=== PATIENT | male | born 1960 | race Caucasian/White ===

== ENCOUNTER 2018-03-12 05:46 | Day surgery (SDC) | payer OTHER ==
--- NOTE | 2018-03-12 06:09 | ED PDOC ---
Arrival/HPI - General Chief Complaint: Chest Pain Time Seen by Provider: 03/12/18 05:56 Historian: Patient - History of Present Illness Narrative History of Present Illness (Text): 03/12/18 06:09 Mango Linton is a 57 year old male, whose past medical history includes hypertension and diabetes, who presents to the Emergency department complaining of history of chest pain. Patient states he has been experiencing mid-sternal c hest pain, intermittently since yesterday, with associated dizziness. Patient denies any fever, chills, nausea, vomiting, diarrhea, urinary symptoms, back pain, neck pain, headache, focal neurological deficits, or any other complaints.Patient currently without any chest pain. Symptom Onset: Gradual Symptom Course: Unchanged Activities at Onset: Light Context: Home Past Medical History - Provider Review Nursing Documentation Reviewed: Yes - Cardiac Hx Hypertension: Yes - Endocrine/Metabolic Hx Diabetes Mellitus Type 2: Yes - Psychiatric Hx Substance Use: No - Surgical History Other/Comment: R foot, 2nd toe amputation - Anesthesia Hx Anesthesia: Yes Hx Anesthesia Reactions: No Hx Malignant Hyperthermia: No Family/Social History - Physician Review Nursing Documentation Reviewed: Yes Family/Social History: Unknown Family HX Smoking Status: Never Smoked Hx Alcohol Use: No Hx Substance Use: No Allergies/Home Meds Allergies/Adverse Reactions: Allergies No Known Allergies Allergy (Verified 03/12/18 05:55) Review of Systems - Physician Review All systems were reviewed & negative as marked: Yes - Review of Systems Constitutional: Normal. absent: Fevers Eyes: Normal ENT: Normal Respiratory: Normal. absent: SOB, Cough Cardiovascular: Chest Pain Gastrointestinal: Normal. absent: Abdominal Pain, Diarrhea, Nausea, Vomiting Genitourinary Male: Normal. absent: Dysuria, Frequency, Hematuria, Urinary Output Changes Musculoskeletal: Normal. absent: Back Pain, Neck Pain Skin: Normal. absent: Rash Neurological: Dizziness Endocrine: Normal Hemo/Lymphatic: Normal Psychiatric: Normal Physical Exam Vital Signs Reviewed: Yes Vital Signs Pulse Resp BP Pulse Ox 03/12/18 06:05 63 18 163/76 H 98 Temperature: Afebrile Blood Pressure: Hypertensive Pulse: Regular Respiratory Rate: Normal Appearance: Positive for: Well-Appearing, Non-Toxic, Comfortable Pain Distress: None Mental Status: Positive for: Alert and Oriented X 3 - Systems Exam Head: Present: Atraumatic, Normocephalic Pupils: Present: PERRL Extroacular Muscles: Present: EOMI Conjunctiva: Present: Normal Mouth: Present: Moist Mucous Membranes Neck: Present: Normal Range of Motion Respiratory/Chest: Present: Clear to Auscultation, Good Air Exchange. No: Respiratory Distress, Accessory Muscle Use Cardiovascular: Present: Regular Rate and Rhythm, Normal S1, S2. No: Murmurs Abdomen: No: Tenderness, Distention, Peritoneal Signs Back: Present: Normal Inspection Upper Extremity: Present: Normal Inspection. No: Cyanosis, Edema Lower Extremity: Present: Normal Inspection. No: Edema Neurological: Present: GCS=15, CN II-XII Intact, Speech Normal Skin: Present: Warm, Dry, Normal Color. No: Rashes Psychiatric: Present: Alert, Oriented x 3, Normal Insight, Normal Concentration Medical Decision Making ED Course and Treatment: 03/12/18 06:09 Impression: 57 year old male complaining of chest pain and dizziness since yesterday. Plan: -- EKG -- Chest X-ray -- Labs, cardiac enzymes -- Reassess and disposition Prior Visits: Notes and results from previous visits were reviewed. Progress Notes: Reviewed EKG, NSR at [address] LAHB. Non-specific ST/T wave changes. 03/12/18 07:00 Informed that patient is scheduled to go to the cardiac animal laboratory technician. and that his presence requested 0 - EKG Interpretation Interpreted by ED Physician: Yes Type: 12 lead EKG - Scribe Statement The provider has reviewed the documentation as recorded by the Harrison Esqueda Provider Scribe Attestation: All medical record entries made by the Scribe were at my direction and personally dictated by me. I have reviewed the chart and agree that the record accurately reflects my personal performance of the history, physical exam, medical decision making, and the department course for this patient. I have also personally directed, reviewed, and agree with the discharge instructions and disposition. Disposition/Present on Arrival - Present on Arrival Any Indicators Present on Arrival: No History of DVT/PE: No History of Uncontrolled Diabetes: No Urinary Catheter: No History of Decub. Ulcer: No History Surgical Site Infection Following: None - Disposition Have Diagnosis and Disposition been Completed?: Yes Diagnosis: Chest pain Disposition: HOSPITALIZED Disposition Time: 06:56 Condition: STABLE Discharge Instructions (ExitCare): Chest Pain (ED) Forms: How do you roll? (Azeri)
[2018-03-12 06:50] LABS: HEMOGLOBIN 11.1 g/dL (14.0-18.0); MEAN CELL VOLUME 84.5 fl (80.0-105.0); MEAN CORPUSCULAR HEMOGLOBIN 28.7 pg (25.0-35.0); MEAN CORPUSCULAR HGB CONC 33.9 g/dl (31.0-37.0); MEAN PLATELET VOLUME 9.6 fl (7.0-11.0); RBC 3.87 10^6/uL (3.5-6.1); RED CELL DISTRIBUTION WIDTH 14.5 % (11.5-14.5)
[2018-03-12] MEDS ORDERED: Lidocaine 2% Inj (20ml) ONE ×2 (06:51→08:12)
[2018-03-12] MEDS ORDERED: Verapamil 0 ML ONE (06:51)
[2018-03-12] MEDS ORDERED: Iohexol 350mgl/ml 50 ML ONE ×2 (06:52→08:12)
[2018-03-12] MEDS ORDERED: Iodixanol 320 MG/ML 100 ML BOTTLE IV ONE ×2 (06:52→08:12)
[2018-03-12] MEDS ORDERED: Nitroglycerin 50mg in D5W 0 MG/0 ML BOTTLE IV ONE (06:52)
[2018-03-12] MEDS ORDERED: Iodixanol 320 MG/ML 200 ML BOTTLE IV ONE ×2 (06:52→08:12)
[2018-03-12] MEDS ORDERED: Heparin 0 ML IV ONE (06:52)
[2018-03-12] MEDS ORDERED: Phenylephrine 10 mg/ml Inj ONE (06:52)
[2018-03-12 07:02] LABS: INR 1.2; PARTIAL THROMBOPLASTIN TIME 27.3 Seconds (25.1-36.5); PROTHROMBIN TIME 13.8 SECONDS (9.4-12.5)
[2018-03-12 07:10] LABS: ALBUMIN 3.7 g/dL (3.0-4.8); CALCIUM 9.4 mg/dL (8.4-10.5)
[2018-03-12 07:34] LABS: CK MB% 2.2 % (2.5-3.0); CK-MB 5.8 ng/mL (0.0-3.6); TROPONIN I 0.16 ng/mL
[2018-03-12] MEDS ORDERED: Sodium Bicarbonate (8.4%) 50 Meq Syringe IVP ONE (08:12)
[2018-03-12] MEDS ORDERED: Nitroglycerin 50mg in D5W 50 MG/250 ML BOTTLE IV ONE (08:12)
[2018-03-12] MEDS ORDERED: Verapamil 2 ML ONE (08:12)
[2018-03-12] MEDS ORDERED: Midazolam 2 MG/2 ML VIAL ONE (08:13)
[2018-03-12] MEDS ORDERED: Eptifibatide 20 mg/10mL Inj IVP ONE (08:26)
--- NOTE | 2018-03-12 10:01 | RAD ---
Date of service: 03/12/2018 HISTORY: chest pain COMPARISON: No prior. FINDINGS: LUNGS: No active pulmonary disease. PLEURA: No significant pleural effusion identified, no pneumothorax apparent. CARDIOVASCULAR: No aortic atherosclerotic calcification present. Normal cardiac size. No pulmonary vascular congestion. OSSEOUS STRUCTURES: No significant abnormalities. VISUALIZED UPPER ABDOMEN: Normal. OTHER FINDINGS: None. IMPRESSION: No active disease.
--- NOTE | 2018-03-12 10:38 | CPOSTOP ---
DATE: 03/12/2018 CARDIOVASCULAR LAB POSTPROCEDURE NOTE PHYSICIAN: Dr. Talia Garza. CHALKER SOLES: Dina Benton, maintenance service technician. TYPE OF ANESTHESIA: Moderate conscious sedation. Total 2 mg of Versed and 100 of fentanyl given, periodically started at img of Versed and 50 mcg of fentanyl. PRE-PROCEDURE DIAGNOSIS: Unstable angina, admitted to the emergency room. PROCEDURE PERFORMED: 1. Left heart catheterization. 2. Stenting of mid circumflex. 3. Plain balloon angioplasty of OM1 and OM2 (distal circumflex). 4. Stenting of mid LAD. 5. Stenting of proximal LAD. FINDINGS: Left main ok, LAD 80% to 90% proximal to mid multiple stenosis, circumflex has 90% mid stenosis, distal circumflex has 90% stenosis bifurcating to OM1 and OM2.Anamolous orig of RCA from Left Cusp, Mild to Moderate Diffusely Diseased, but no flow limiting stenosis.Preserved LV Fx EF-55-60%, EDP-20 mmof Hg FINAL DIAGNOSES: 1. Multivessel coronary artery disease. 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 3. Preserved left ventricle function. 4. Renal Insufficiency, CKD ( Stage III-IV) POST PROCEDURE CONDITION: The patient's condition is stable. VASCULAR ACCESS SITE: Right femoral artery. CLOSURE DEVICE: Angio-Seal. TOTAL RADIATION DOSE: 03904.80 milligray unit. TOTAL FLUORO TIME: 26.3 minutes. Talia Garza MD [facility]
[2018-03-12] MEDS ORDERED: Insulin Reg-MEDIUM-Coverage SC SCH (11:30)
--- NOTE | 2018-03-12 11:33 | HP ---
DATE OF EXAM: 03/11/2018 REASON FOR ADMISSION: Left heart cath, possible angioplasty because of worsening angina. BRIEF CLINICAL HISTORY: A 56-year-old male with past medical history significant for diabetes, hypertension more than 15 years, noncompliant with the medication, history of CKD, anemia who had unstable angina recently on 11/24/2017 admitted to [facility], went into acute kidney injury, pneumonia and later on the patient had cardiac catheterization and found to be triple-vessel disease with anomalous origin of the right coronary artery. The patient was seen by Dr.Fred Strauss and thought to be the high risk for surgical intervention because of poor target that was at [facility] seen by and found to be high risk for CABG and not for the weak candidate, coronary artery bypass surgery was not done and medical treatment recommended. Since then the patient remain relatively stable, but now the patient have any worsening angina walks half a block and get severe chest pain, crescendo Angina with shortness of breath, lately seen by me twice and then the patient is schedule for cardiac catheterization possible angioplasty and circumflex plus minus RCA. PAST MEDICAL HISTORY: Significant for diabetes, hypertension, hyperlipidemia, coronary artery disease, status post non-STEMI, admitted to [facility] where the patient had a cardiac catheterization, found to be triple-vessel disease with poor distal target. The patient later on went into acute kidney injury, creatinine went up to 7.6, later on creatinine came back to 1.5, now the creatinine most recent is 1.5 to 2, but having worsening angina. SOCIAL HISTORY: Ex-smoker. Denies any history of alcohol abuse. ALLERGIES: NO KNOWN DRUG ALLERGY. CURRENT MEDICATIONS: The patient is taking carvedilol 12.5 mg daily, aspirin 81 mg daily, Insulin Glargene 300 units daily, insulin 27 units daily, Cymbalta 20 mg at bedtime, amlodipine 10 mg daily, Demadex 20 mg daily, simvastatin, Zocor 20 mg daily, and isosorbide dinitrate 60 mg daily. PREVIOUS CARDIAC WORKUP: As follows; the patient had stress test on 05/29/2017, abnormal stress test, but the patient did not show for followup, then the patient recently admitted to [facility] (at [facility]) with non-STEMI, pneumonia, acute kidney injury, later on the patient underwent cardiac catheterization that revealed left main essentially free of significant disease, LAD diffusely diseased, proximal circumflex 80% stenosis long lesion and then distal circumflex is 90% stenosis, RCA anomalous in origin from the left coronary 70% stenosis proximally and mid 75% stenosis, ejection fraction 55%. History of CKD. History of anemia. REVIEW OF SYSTEMS: As per HPI. PHYSICAL EXAMINATION: VITAL SIGNS: Height of the patient is 5 feet 6 inches, weight of the patient 170 pounds, and body mass index 24.6 kg/m2. HEENT: PERRLA. Extraocular muscles intact. NECK: Supple. No carotid bruit or thyromegaly. CHEST: Clear to auscultation. HEART: S1 and S2 regular. ABDOMEN: Soft. EXTREMITIES: Clubbing and cyanosis negative. LABORATORY DATA: Blood workup is pending. IMPRESSION: Unstable angina, progressively worsening, crescendo angina, history of noncoronary artery disease way back to 05/29/2017 with the patient had an abnormal stress test, did not show up for followup, later on admitted to [facility] on 11/16/2017 where the patient has a non-ST elevation myocardial infarction, underwent cardiac catheterization, reveal triple-vessel disease, surgical consult revealed poor distal target not a candidate and since the patient had acute injury with the creatinine of 7.6, so the patient was treated medically. Since then, the patient remained stable, but last 2 months, the patient is getting worsening angina and walk half a block with severe chest pain with shortness of breath and couple of times history of orthopnea and paroxysmal nocturnal dyspnea, though preserved left ventricular function. The patient had an echo done on 11/13/2017 that revealed ejection fraction of 65% to 70%, diastolic dysfunction, left atrium with mildly dilated right ventricle is normal in size, mild mitral regurgitation, mild tricuspid regurgitation,and no pericardial effusion noted. Right ventricular systolic pressure is 26.3. RECOMMENDATIONS: We will follow the lab when the lab is available. Risks, benefits, and alternatives were discussed with the patient, the patient agreed and we will proceed from the right femoral approach and use minimal dye to delineate coronary anatomy and then for most likely PTCA of the circumflex and RCA. Further recommendations depending upon hospital course and we will follow with you. We will hydrate the patient with bicarbonate. Thank you Dr. Chiu for providing us the opportunity in taking care of the patient, Lyudmila Cobian. Talia Garza MD [facility]
[2018-03-12 13:31] VITALS: BMI 27.4
[2018-03-12] MEDS ORDERED: Influenza Vaccine 60 mcg/0.5 mL SYR (4YR UP) IM ONE (13:31)
[2018-03-12] MEDS ORDERED: Pneumococcal 23-Valent Vaccine IM ONE (13:31)
--- NOTE | 2018-03-12 14:07 | PN ---
DATE: 03/12/2018 IN SUMMARY/HOLDING NOTE/BRIEF HISTORY AND PHYSICAL: BRIEF CLINICAL HISTORY: This is a 57-year-old male, who had history of coronary artery disease, diabetes, hypertension, and hyperlipidemia for many years, more than 15 years. Had abnormal stress test in 05/2017 abnormal, but the patient lost followup, then admitted to [facility] in 10/2017 with pneumonia, acute kidney injury, and non-STEMI where the patient underwent cardiac catheterization that revealed, left main without significant disease, bifurcate LAD and circumflex; circumflex has proximal 80% stenosis, distal circumflex 90% stenosis. LAD is diffusely diseased, right coronary artery arising from the non left cusp and has a diffuse disease reported 70%. The patient was turned down by the Surgery because of the diffuse disease, and medical treatment recommended, who is having progressively worsening angina, was seen twice in January and December, was having half a block dyspnea on exertion. The patient is scheduled for cardiac catheterization today as outpatient, but last night the patient developed chest pain, so he came to emergency room. Initial admitting troponin was 0.16, so the patient was taken to the clinical laboratory director and then subsequently the patient underwent multivessel angioplasty including 3 stents proximal to mid LAD, and one stent in Mid circumflex, and plain balloon angioplasty done, preserved LV function. FINDINGS ON THE CATH: As follows; left main essentially for significant disease, bifurcate LAD and circumflex, LAD diffusely diseased proximal to mid multiple stenoses in the range of 80-90%, circumflex has mid,( proximal to mid) 90% stenosis, distal circumflex has another 90% stenosis bifurcating into OM1 and OM2 branch. Right coronary artery was ector origin from the left cusp, diffusely diseased, no focal flow limiting stenosis noted though it was a nonselective injection. LV gram showed preserved LV function, ejection fraction 55%, EDP was in the range of 20 mmHg. Total 150 mL of contrast used with AVD pack and successful PTCA with the stenting of mid circumflex plain balloon angioplasty of distal circumflex OM1, OM2 and 3 stents was done from proximal to mid LAD. The patient tolerated the procedure well, returned to floor in stable condition. PLAN: Plan is to observe overnight, start bicarb drip for 10 hours followed by hydration with normal saline for next 24 hours. We will check repeat SMA-7 at 4 p.m. and then tomorrow. We will closely monitor his multiple stents. We will start Brilinta 90 mg twice a day, 180 was given loading after the procedure and 81 mg of baby aspirin in addition to simvastatin, beta-drew, and Coreg. The patient is not on SAJI inhibitor because of the renal insufficiency. We will follow. Further recommendations depending upon hospital course. We will follow with you. Please see the detailed H and P dictated for admission, elect for cath, but the patient admitted to the ER, so different account number. Talia Garza MD [email or web address]
[2018-03-12 14:44] LABS: BASO # 0.01 K/mm3 (0.0-2.0); BASO % 0.1 % (0.0-3.0); EOS # 0.4 (0.0-0.7); EOS % 4.9 % (1.5-5.0); GRAN # 5.84 (1.4-6.5); GRAN % 66.3 % (50.0-68.0); HEMOGLOBIN 10.5 g/dL (14.0-18.0); LYMPH % 22.4 % (22.0-35.0); MEAN CELL VOLUME 83.3 fl (80.0-105.0); MEAN CORPUSCULAR HEMOGLOBIN 28.3 pg (25.0-35.0); MEAN PLATELET VOLUME 10.1 fl (7.0-11.0); MONO # 0.6 (0.1-0.6); MONO % 6.3 % (1.0-6.0); RBC 3.71 10^6/uL (3.5-6.1); RED CELL DISTRIBUTION WIDTH 14.2 % (11.5-14.5); WHITE BLOOD COUNT 8.8 10^3/uL (4.5-11.0)
[2018-03-12 14:52] LABS: CALCIUM 8.8 mg/dL (8.4-10.5)
[2018-03-12] MEDS ORDERED: Potassium Chloride 20 mEq ER Tab PO ONE (15:07)
--- NOTE | 2018-03-12 15:35 | CARD ---
APPROVED REPORT Date of service: 03/12/2018 Procedure(s) performed: Left Heart Catheterization PTCA with Stenting of Mid Circumflex with WM PTCA with Balloon Angioplasty of distal Cx, OM1, and OM2 PTCA with Stenting of Proximal LAD with WM PTCA with Stenting of Mid LAD with WM HISTORY The patient is a 57 year-old male with a history of : previous CHF, renal failure without dialysis, diabetes mellitus with insulin treatment , previous diagnostic cath, hypertension , dyslipidemia , Hx of NSTEMI, Pneumonia at [facility] in 10/2017, cath revealed Triple vessel diz, Preserved LVFx, Turn down by surgery, went into Acute kidney injury with creatinine 6.7, Dc on Medical treatment, who was having worsening angina ( crescendo angina) was Scheduled for Cath today and possible PTCA, but had chest pain came to ER with unstale angina and borderline troponin positive, 0.16.. INDICATION The indication(s) include : unstable angina , non-STEMI . CASE TECHNIQUE The patient was brought urgently to the Cardiac Catheterization Laboratory in a fasting state and was prepped and draped in a sterile manner. The right femoral groin was infiltrated with 2% Lidocaine subcutaneous anesthesia. A 6 Fr x 11 cm Norma sheath was inserted into the right femoral artery without difficulty. Coronary angiography was performed using coronary diagnostic catheters. The left coronary system was accessed and visualized with a Diagnostic , 5F JL 4 CATH DXT 100 CM catheter. The right coronary system was accessed and visualized with a Diagnostic ,5F JR 4 CATH DXT 100 CM,6 Fr AL 1,6 Fr AR 1,6 Fr MARCO,6 Fr WRP,6 Fr MPA 1,5 Fr 3DRC, and 6 Fr XB 3.5 catheter. The left ventricle was accessed and visualized with a 6 Fr AL 1 catheter. Left ventricular/Aortic Valve gradient assessed on pullback. Left ventriculogram was performed in WOOD projection. Closure device was deployed with a 6 Fr Angio-Seal without any complications. The patient tolerated the procedure well and there were no complications associated with the procedure. Vessel Analysis The patient's coronary anatomy is right dominant. The left main coronary artery is a large size vessel with diffuse calcification noted throughout this vessel and without significant stenosis. The left main bifurcates to the left anterior descending and circumflex. The left anterior descending artery is a medium size vessel with diffuse calcification noted throughout this vessel and with significant stenosis. There is a 80-90% stenosis Multiple in Proximal to Mid segments. Distal LAD is diffusely diseased The first diagonal branch is a small size vessel with diffuse calcification noted throughout this vessel and without significant stenosis. The second diagonal branch is a small size vessel with diffuse calcification noted throughout this vessel and without significant stenosis. The circumflex artery is a large size vessel with diffuse calcification noted throughout this vessel and with significant stenosis. There is a 90% stenosis in the proximal to Mid segment. distal Circumflex has 90% stenosis, and stenoses continued to OM1 and OM2 The first obtuse marginal branch is a small size vessel with diffuse calcification noted throughout this vessel and with significant stenosis. There is a 90% stenosis in the ostial segment. The second obtuse marginal branch is a small size vessel with diffuse calcification noted throughout this vessel and with significant stenosis. There is a 90% stenosis in the ostial segment. The right coronary artery is a medium size vessel with diffuse calcification noted throughout this vessel and without significant stenosis. Originates from Left coronary Cusp unable to engage inspite of using multiple catheterts, Appears diffusely diseased but no flow limiting stenosis on Cusp injection ( non selective). The right posterior descending artery is a medium size vessel with diffuse calcification noted throughout this vessel and without significant stenosis. The right posterolateral branch is a medium size vessel with diffuse calcification noted throughout this vessel and without significant stenosis. Left Ventricle The left ventricle is normal in size with normal contractility. There was no cardiomyopathy. The left ventricular ejection fraction is estimated to be 55-60%. The left ventricular end diastolic pressure is 18-20 mmHg. There was no gradient across the aortic valve upon pullback. PCI Technique Lesion Anticoagulation was achieved with Heparin and integrellin bolluses. Percutaneous coronary intervention was performed on the mid circumflex artery segment. The lesion stenosis prior to intervention was 90% with JJ 2 flow. A 6 Fr XB 3.5 Guide Catheter was used to engage the ostium. A Luge 182 Interventional Guidewire was used to cross the lesion. BALLOON DILATION A Balloon catheter 3.0 x 10 mm Sprinter RX was inserted and inflated up to 10.00atm for 19seconds. STENT DEPLOYMENT A drug-eluting stent STENT RESOLUTE MAG 3.5 X 12 was inserted and inflated up to 12.00atm for 17seconds. Final angiography reveals 0 % stenosis with JJ 0 flow. PCI Technique Lesion 2 Percutaneous Coronary Intervention was performed on the second obtuse marginal branch segment. The lesion stenosis prior to intervention was 90% with JJ 2 flow. A 6 Fr XB 3.5 Guide Catheter was used to engage the ostium. A Luge 182 Interventional Guidewire was used to cross the lesion. BALLOON DILATION A Balloon catheter 2.0 x 15 mm Sprinter RX was inserted and inflated up to 8.00-10.00atm for 61seconds. Final angiography reveals 20 % stenosis with JJ 3 flow. PCI Technique Lesion 3 Percutaneous Coronary Intervention was performed on the first obtuse marginal branch segment. The lesion stenosis prior to intervention was 90% with JJ 2 flow. A 6 Fr XB 3.5 Guide Catheter was used to engage the ostium. A 0.014 x 182 cm Choice PT Extra Support Interventional Guidewire was used to cross the lesion. BALLOON DILATION A Balloon catheter 2.0 x 15 mm Sprinter RX was inserted and inflated up to 8.00atm for 60seconds. Final angiography reveals 20 % stenosis with JJ 3 flow. PCI Technique Lesion 4 Percutaneous Coronary Intervention was performed on the mid left anterior descending artery segment. The lesion stenosis prior to intervention was 90% with JJ 2 flow. A 6 Fr XB 3.5 Guide Catheter was used to engage the ostium. A 0.014 x 182 cm Choice PT Extra Support Interventional Guidewire was used to cross the lesion. BALLOON DILATION A Balloon catheter 2.0 x 10 mm Sprinter RX was inserted and inflated up to 10.00atm for 25seconds. STENT DEPLOYMENT A drug-eluting stent STENT RESOLUTE MAG 2.25 X12 was inserted and inflated up to 10.00atm for 24seconds. Another WM Resolute [place] 2.25/38 deployed proximal to first stet at 14 atmosphere overlapping first one Final angiography reveals 0 % stenosis with JJ 3 flow. PCI Technique Lesion 5 Percutaneous Coronary Intervention was performed on the proximal left anterior descending artery segment. The lesion stenosis prior to intervention was 90% with JJ 2 flow. A 6 Fr XB 3.5 Guide Catheter was used to engage the ostium. A 0.014 x 182 cm Choice PT Extra Support Interventional Guidewire was used to cross the lesion. BALLOON DILATION A Balloon catheter 2.0 x 10 mm Sprinter RX was inserted and inflated up to 14.00atm for 16seconds. STENT DEPLOYMENT A drug-eluting stent STENT RESOLUTE MAG 2.5 X22 was inserted and inflated up to 14.00atm for 16seconds. Final angiography reveals 0 % stenosis with JJ 3 flow. Conclusion Multi Vessel CAD involving Proximal to Mid LAD Multple stenoses 80-90% Mid CX 90%, and Distal CX90% involving OM1 and OM2 origin 90% stenoses RCA originates fron left cusp diffusely diseased but No focal flow limiting on Non selective Cusp injection. preserved LVFx, EF-55-60%, EDP_18 mmof Hg, Successful PTCA with WM of proxmal to Mid LAD using 3 stents ,WM. and Mid CX using WM and distal Cx, OM1 and OM2 POBA, (plain Balloon Angioplasty). Recommendations Aggressive Medical TherapyCardiac Risk Reduction Program Weight Loss Reduction Program ASA 81 mg po daily and Brilinta 90 mg po daily for one year. Hydrate with Bicab drip overnight and monitor renal Fx closely, SMA-7 at 3 pm today ,tomorrow am and in one week. Continue base line Meds, Avoid Nephrotoxic meds. No SAJI/ARB for now b/c of renal insufficieny and to prevent Acute kidney injury. CC; Handy Eden MD.
[2018-03-12] MEDS: Insulin Reg-MEDIUM-Coverage SC SCH ×2 (17:45→22:00)
[2018-03-12] MEDS: Sodium Chloride 0.9% 1,000 ML IV SCH (18:00)
[2018-03-13 00:09] VITALS: RESP 18
[2018-03-13 06:07] VITALS: O2SAT 99
[2018-03-13 07:43] LABS: BASO # 0.01 K/mm3 (0.0-2.0); BASO % 0.1 % (0.0-3.0); EOS # 0.4 (0.0-0.7); GRAN # 6.34 (1.4-6.5); GRAN % 68.1 % (50.0-68.0); LYMPH # 1.9 (1.2-3.4); LYMPH % 20.3 % (22.0-35.0); MEAN CELL VOLUME 83.7 fl (80.0-105.0); MEAN CORPUSCULAR HEMOGLOBIN 28.1 pg (25.0-35.0); MEAN CORPUSCULAR HGB CONC 33.6 g/dl (31.0-37.0); MONO # 0.7 (0.1-0.6); MONO % 7.5 % (1.0-6.0); RBC 3.56 10^6/uL (3.5-6.1); RED CELL DISTRIBUTION WIDTH 14.3 % (11.5-14.5); WHITE BLOOD COUNT 9.3 10^3/uL (4.5-11.0)
--- NOTE | 2018-03-13 07:51 | CP.PCM.PN ---
Subjective - Date & Time of Evaluation Date of Evaluation: 03/13/18 Time of Evaluation: 06:45 - Subjective Subjective: Awake, alert, denies chest pain Reason for consultation and follow up: Cardiac evaluation of chest pain, History of hypertension and diabetes. Seen and examined by me and Dr. Garza Objective - Vital Signs/Intake and Output Vital Signs (last 24 hours): Temp Pulse Resp BP Pulse Ox 98.2 F 67 18 159/81 H 99 03/13/18 06:00 03/13/18 06:00 03/13/18 06:00 03/13/18 06:00 03/13/18 06:00 Intake and Output: 03/13/18 03/13/18 06:59 18:59 Intake Total 2559 Output Total 1517 Balance 1042 - Medications Medications: Current Medications Amlodipine Besylate (Norvasc) 10 mg PO DAILY [facility] Aspirin (Ecotrin) 81 mg PO DAILY [facility] Atorvastatin Calcium (Lipitor) 40 mg PO DIN [facility] Last Admin: 03/12/18 17:45 Dose: 40 mg Carvedilol (Coreg) 12.5 mg PO BID [facility] Last Admin: 03/12/18 18:09 Dose: Not Given Sodium Chloride (Sodium Chloride 0.9%) 1,000 mls @ 75 mls/hr IV .[id number] [facility] Last Admin: 03/12/18 18:00 Dose: 75 mls/hr Insulin Human Regular (Humulin R Med) 0 units [facility]; Protocol Last Admin: 03/12/18 22:00 Dose: Not Given Isosorbide Mononitrate (Imdur) 60 mg PO DAILY [facility] Ticagrelor (Brilinta) 90 mg PO BID [facility] Last Admin: 03/12/18 17:45 Dose: 90 mg Torsemide (Demadex) 20 mg PO DAILY [facility] - Labs Labs: 03/13/18 07:30 03/12/18 14:30 PT 13.8 SECONDS (9.4-12.5) H 03/12/18 06:40 INR 1.20 03/12/18 06:40 APTT 27.3 Seconds (25.1-36.5) 03/12/18 06:40 - Constitutional Appears: Non-toxic, No Acute Distress - Head Exam Head Exam: NORMAL INSPECTION, NORMOCEPHALIC - Eye Exam Eye Exam: Normal appearance Pupil Exam: NORMAL ACCOMODATION - ENT Exam ENT Exam: Mucous Membranes Moist, Normal Exam - Respiratory Exam Respiratory Exam: Clear to Ausculation Bilateral, NORMAL BREATHING PATTERN - Cardiovascular Exam Cardiovascular Exam: REGULAR RHYTHM, +S1, +S2 - GI/Abdominal Exam GI & Abdominal Exam: Soft, Normal Bowel Sounds - Extremities Exam Extremities Exam: Full ROM, Normal Capillary Refill Additional comments: right groin no bleeding no hematoma - Neurological Exam Neurological Exam: Alert, Awake, Oriented x3 - Psychiatric Exam Psychiatric exam: Normal Affect, Normal Mood - Skin Skin Exam: Dry, Normal Color, Warm Assessment and Plan - Assessment and Plan (Free Text) Assessment: A 57 year old male who came in to the Er due to chest pain. history of Coronary artery disease, diabetes, hypertension, and hyperlipidemia. He had an abnormal stress test in 05/2017. Cardiac cath was recommended at that time but did not follow up. On 10/2017, admitted in [facility] for Non-STEMI and cardiac cath was done with diffuse coronary disease. LM no disease, bifurcate LAD and Cx. Proximal Cx 80 %,distal Cx 90%, LAD diffusely diseased, RCA diffuse 70% stenosis, Referred for CABG however was turned down for surgery. He was treated medically however progressively having angina. He was seen in the office December and January 2018 and was scheduled to have an elective cath. But had another episode of chest pain and came to the ER. Elevated troponin and was brought to the [facility], Cath and PTCA was done. PTCA with stent of CX, plain angioplasty of OM1 and OM2, PTCA with stents of mid LAD and proximal LAD. Pre- cath renal insufficiency, repeat labs today. Denies chest pain. Plan: Post cath and PTCA yesterday Denies chest pain Blood pressure controlled On IV hydration BUN/Creatinine 28/1.6, improved pre cath Continue Brilinta and ASA for at least a year Will discharge home Follow up in office 1-2 weeks Plan and treatment discussed with Dr. Garza
[2018-03-13 08:06] LABS: ALB/GLOB RATIO 0.9 (1.1-1.8); ALBUMIN 3.1 g/dL (3.0-4.8); CALCIUM 8.7 mg/dL (8.4-10.5)
[2018-03-13] MEDS: Insulin Reg-MEDIUM-Coverage SC SCH (08:50)
[2018-03-13] MEDS: Sodium Chloride 0.9% 1,000 ML IV SCH (08:53)
--- NOTE | 2018-03-13 10:54 | CARD ---
APPROVED REPORT Date of service: 03/13/2018 EKG Measurement Heart [id number] <Conclusion> Normal sinus rhythm Left anterior fascicular block Nonspecific T wave abnormality Abnormal ECG
--- NOTE | 2018-03-13 11:11 | CARD ---
APPROVED REPORT Date of service: 03/12/2018 EKG Measurement Heart [id number] <Conclusion> Normal sinus rhythm Left anterior fascicular block Nonspecific T wave abnormality Prolonged QT Abnormal ECG
--- NOTE | 2018-03-13 11:14 | CARD ---
APPROVED REPORT Date of service: 03/12/2018 EKG Measurement Heart [id number] <Conclusion> Normal sinus rhythm Pulmonary disease pattern Left anterior fascicular block Nonspecific T wave abnormality Abnormal ECG
[2018-03-13 12:23] VITALS: BP 137/82; PULSE 65; TEMP 97.9
--- NOTE | 2018-03-13 21:31 | DS ---
BRIEF CLINICAL HISTORY: This is a 57-year-old male with past medical history significant for coronary artery disease, abnormal stress test in the past lost followup, history of non-STEMI, history of pneumonia, history of acute kidney injury, admitted to [facility], where the patient underwent cardiac catheterization, found to be triple-vessel disease turned down by the surgery and medical treatment recommended. Recently, the patient seen in office twice and having a progress really worsening crescendo. So, the patient was admitted for cardiac cath possible angioplasty. The patient underwent 3 stent in LAD yesterday and stent in the mid circumflex and plain balloon angioplasty circumflex. Admitting creatinine was 1.9. The patient kept after the procedure for hydration and then after that today creatinine came back to 1.6, last night also 1.6. Plan is to discharge the patient. DISCHARGE MEDICATIONS: Include baby aspirin 81 mg daily, Brilinta 90 mg daily, carvedilol 12.5 mg daily, Demadex 20 mg daily, isosorbide 60 mg daily, and Lasix 40 mg was given yesterday only, we will continue Demadex, continue amlodipine 10 mg daily, and discontinue IV fluid and possibly we will discharge today. PRINCIPLE PROCEDURE DONE DURING TO ADMISSION: Include complete left heart catheterization, stenting of mid circumflex, plain balloon angioplasty to the circumflex and plain balloon angioplasty of obtuse marginal 2 and then stenting of mid to proximal LAD 3 drug-eluting stent using 3 drug-eluting stent. PERTINENT LABORATORY DATA: Today, WBC , hemoglobin 10, hematocrit 29.8 and platelet count 244. Chemistry today shows, sodium 140, potassium 4, chloride 107, carbon dioxide 27, anion gap of 10, BUN 28, creatinine 1.6, total glucose 1013, calcium 8.7, phosphorous 4.2, magnesium 1.7, total bilirubin 0.6, TSH 7.32, total protein 6.3 , albumin 3.1, albumin-globulin ratio 3.3, triglycerides 123, cholesterol 102, LDL 55 and HDL 25. FINAL DIAGNOSES: Hypothyroidism, diabetes, hypertension, hyperlipidemia, coronary artery disease, worsening angina, unstable angina, non-ST segment myocardial infarction on this admission. The patient admitted with troponin of 0.16, history of coronary artery disease, history of chronic kidney disease, diabetes, and hypertension more than 16 years. In summary, we will add on 2 medications Levoxyl 25 mcg 1 p.o. and Brilinta 90 mg twice a day in addition to the previous medication. Talia Garza MD
[2018-03-14] MEDS ORDERED: Levothyroxine 25 MCG TAB PO SCH (06:00)
== END 2018-03-13 14:36 | disposition home or self-care (01) ==
LOC: ED 05:46 → CATH 07:25 → 2RSO 10:07 → UNDOADMIN 11:57 → CATH 12:00 → 2RSO 12:00 → CATH 03-13 14:36
PROVIDERS: ATTEND Internal Medicine Cardiovascular Disease
DX: I25.110 Atherosclerotic heart disease of native coronary artery with unstable angina pectoris (principal); I13.0 Hypertensive heart and chronic kidney disease with heart failure and stage 1 through stage 4 chronic kidney disease, or unspecified chronic kidney disease; I50.9 Heart failure, unspecified; N18.9 Chronic kidney disease, unspecified; Z87.01 Personal history of pneumonia (recurrent); I25.2 Old myocardial infarction; E11.22 Type 2 diabetes mellitus with diabetic chronic kidney disease; E78.5 Hyperlipidemia, unspecified; D64.9 Anemia, unspecified; Z79.4 Long term (current) use of insulin; Z79.82 Long term (current) use of aspirin; Z79.899 Other long term (current) drug therapy; Z87.891 Personal history of nicotine dependence; Z91.14 Patient's other noncompliance with medication regimen; R94.39 Abnormal result of other cardiovascular function study; I08.1 Rheumatic disorders of both mitral and tricuspid valves
CPT/HCPCS: 36415 ×2; 71045; 80053 ×2; 80061; 82550; 82553; 82948 ×2; 83036; 83615; 83735; 84100; 84443; 84484; 85025 ×2; 85027; 85175; 85610; 85730; 93005 ×2; 93458; 93567; 99152; 99153; 99284; C1725 ×3; C1760; C1769 ×3; C1874 ×4; C1887 ×2; C2629; C9600; C9601; J1327; J1644 ×2; J1940; J2250; J3010; J7030 ×3; Q9966; Q9967